=== PATIENT | female | born 1980 | race Caucasian/White ===

== ENCOUNTER 2025-05-18 16:15 | Emergency (ER) | payer SELFPAY ==
[2025-05-18 16:30] VITALS: BP 160/100; PULSE 77; RESP 16; TEMP 37.1; O2SAT 99
--- OUTSIDE RECORDS SUMMARY | 2025-05-18 17:05 | XMS_ITS | Clinical Summary ---
Author Organization [facility] Address [address] [place] [address] Care Team Providers Care Pension Manager Name Role Phone Kevan Don MD Primary Care Provider [phone] Allergies No known active allergies Medications phenazopyridine (PYRIDIUM) 200 mg tablet Take 1 tablet (200 mg total) by mouth 3 (three) times a day 6 tablet 3 Active Additional Information Patient not taking.Reported on 01/22/2024 fluconazole (DIFLUCAN) 150 mg tablet Take one tablet and repeat in 3 days. 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 BX at 3 oclock. ECC rto 2 weeks 10/21/21- bx and ecc negative Assessment & Plan (10/21/2021 2:24 PM CDT): Results reviewed repeat pap in 12m Assessment & Plan (10/07/2021 10:41 AM BEAM SAW OPERATOR): colpo done rto 2 weeks Nasal deformity 09/21/2021 Assessment & Plan (09/21/2021 5:18 PM BEAM SAW OPERATOR): Closed Nasal bone fracture reduction versus more extensive surgical options for nasal dorsal hump reduction as well for referral to Plastics Dr. Vincent She wishes to pursue Plastic surgery referral at this time Vaginal discharge 08/03/2021 Overview (08/03/2021): D/c after sex None currently as she was just treated with flagyl and diflucan Will treat him with flagyl and start her on metrogel weekly. Assessment & Plan (11/25/2024 3:48 PM CDT): Plan to treat clinically while we await pap results. Assessment & Plan (10/07/2021 10:39 AM BEAM SAW OPERATOR): She didn't tell me about this until after the colpo was done There was some granular appearing d/c Will empirically treat with diflucan, if no better will need to come for GC/cT/MICROBIOLOGY ANALYST. Assessment & Plan (08/03/2021 3:32 PM BEAM SAW OPERATOR): metrogel weekly. She will f/u when she comes for her next gardasil Well woman exam with routine gynecological exam 08/03/2021 Overview (08/03/2021): Lab: Pap:many any abnormals. Recommed repeating q year Due for routine labs. Niall:remote- due Colonoscopy: BMD: Gardasil: discussed up to 45- she would like to do today. Assessment & Plan (10/07/2021 10:44 AM BEAM SAW OPERATOR): gardasil #2 today rto 4 months for repeat Assessment & Plan (08/03/2021 3:32 PM BEAM SAW OPERATOR): Pap done. RTO 12m. I will send the results to the portal. If she has not heard in a week, to call the office. Wants gardasil today. 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 on 08/07/18; negative type 2 Acne rosacea 01/17/2017 Anxiety 09/04/2014 Overview (11/04/2016): Anxiety Resolved Problems Problem Noted Date Diagnosed Date Resolved Date Acute cholecystitis 10/25/2019 08/03/19 22 Encounters Date Type Department Care Team Description 04/09/2025 Telephone [facility] [address] [place] [address] Lilian Mendes RN BV from Last 3 Months Immunizations Immunization Administration Dates Next Due HPV, Quadrivalent 08/03/2022 HPV9 10/07/2021,08/03/2021 PPD TEST 01/24/2024 Surgical History Surgery Date Site/Laterality Comments OTHER SURGICAL HISTORY 07/31/1996 - 07/30/1997 : 6 hr labor OTHER SURGICAL HISTORY 07/31/1999 - 07/30/2000 : OTHER SURGICAL HISTORY : 6 hr labor OTHER SURGICAL HISTORY : 3 hr labor TUBAL LIGATION 07/31/2012 - 07/30/2013 Bilateral tubal ligation OTHER SURGICAL HISTORY 07/31/2004 - 07/30/2005 Abnormal pap smear x several years: Cryo OTHER SURGICAL HISTORY Menorrhagia: Novasure endom. ablation CHOLECYSTECTOMY Medical History Medical History Date Comments Hx Other Medical 1996 ; Outc ome: 40 week 7 lb(s) 15 oz Male Hx Other Medical 1999 ; Outc ome: 39 week 7 lb(s) Male Hx Other Medical ; Outc ome: 38 week 7 lb(s) Male Hx Other Medical ; Outc ome: 38 week 7 lb(s) 15 oz Male Hx Other Medical Abnormal pap sm ear x several years Hx Other Medical Menorrhagia Abnormal Pap smear of cervix Acute cholecystitis 10/25/2019 Family History Medical History Relation Name Comments Hypertension Father Hypertension; Brain cancer Father's Sister 1 Cancer, br ain; Breast cancer Father's Sister 2 Cancer, b reast; Lung cancer Father's Sister 3 Cancer, shamar ng; Breast cancer Paternal Grandmother Cancer Neg Hx no colon or dental resident cancer 08/03/21 cmt- doesnt think there was any genetic testing. None of the cousins have any cancer. Relation Name Status Comments Father Father's Sister 1 Father's Sister 2 Father's Sister 3 Paternal Grandmother Social History Tobacco Use Types Packs/Day Years Used Date Smoking Tobacco: Never Smokeless Tobacco: Never Alcohol Use Standard Drinks/Week Comments Not Currently 0 (1 standard drink = 0.6 oz pur e alcohol) rarely Humiliation, Afraid, Rape, and Kick questionnair e Answer Date Recorded Within the last year, have y ou been afraid of your partner or ex-partner? No 08/03/2021 Within the last year, have y ou been humiliated or emotionally abused in other ways by your partner or ex-partner? No Within the last year, have y ou been kicked, hit, slapped, or otherwise physically hurt by your partner or ex-partner? No 08/03/2021 Within the last year, have y ou been raped or forced to have any kind of sexual activity by your partner or ex-partner? No 08/03/2021 PHQ-2 Answer Date Recorded PHQ-2 Total Score (If total score is 3 or more points, staff should administer the PHQ-9) 0 11/25/2024 Personal Safety Answer Date Recorded Have you ever been in or are you currently in a harmful physical or emotional relationship or is someone making you feel afraid or unsafe? Denies 2023 Comments No Sex and Gender Information Value Date Recorded Sex Assigned at Not on file Legal Sex Female 2:57 PM BEAM SAW OPERATOR Gender Identity Not on file Sexual Orientation Not on file Obstetrics History Para Term AB IAB SAB Ectopic Multiple Livin g Live Births 6 4 4 1 5 4 Date Outcome GA Total Labor Labor//3rd Weight Sex Type Anes PTL Leora A1 A5 Name Clin AB 7 Term 40w 0d 3.6 kg (7 lb 15 oz) M Vag-S pont Living 0 Term 39w 0d 3.175 kg (7 lb) M Vag-S pont Living 2 Term 38w 0d 3.175 kg (7 lb) M Vag-S pont Living 6 Term 38w 0d 3.6 kg (7 lb 15 oz) M Vag-S pont Living Last Filed Vital Signs Vital Sign Reading Time Taken Comments Blood Pressure 150/100 11/25/2024 3:00 PM CDT 130 /84 Pulse 88 01/24/2024 11:32 AM CDT Temperature 36.6 C (97.9 F) 01/24/2024 11:32 AM CDT Respiratory Rate 16 01/24/2024 11:32 AM CDT Oxygen Saturation 99% 01/24/2024 11:32 AM CDT Inhaled Oxygen Concentration - - Weight 72.7 kg (160 lb 3.2 oz) 11/25/2024 3:00 P M CDT Height 165.1 cm (5' 5) 01/24/2024 11:32 AM CDT Body Mass Index 26.66 01/24/2024 11:32 AM CDT Plan of Treatment Health Maintenance Due Date Last Done Comments Breast Cancer Screening-Mammogram 1979 Colon Cancer Screening-Colonoscopy 1979 Hepatitis C Screening 1979 DTaP/Tdap/Td Vaccine (1 - Tdap) 1990 Hepatitis B Screening 1997 Covid-19 Vaccine (3 - season) 2025 08/06/2020, 07/18/2020 Influenza Vaccine (#1) 2025 , 05/11/2021, 05/21/2019, Additional history exists Cervical Cancer Screening 11/25/20252024, 11/25/2024, 08/10/2022, Additional history exists Depression Screening 11/25/2025 11/25/2024, 08/10/2022, 08/03/2021, Additional history exists Regular Well Visit/Exam 18-64 11/25/2025 11/25/2024, 08/10/2022, 08/03/2021, Additional history exists HPV Vaccines Completed 08/03/2022, 09/28, 08/03/2021 Pneumococcal vaccine <65 Aged Out No longer eligible based on patient's age to complete this topic Procedures Procedure Name Priority Date/Time Associated Diagnosis Comments HIGH RISK HPV DNA DETECTION WITH GENOTYPING Routine 11/25/2024 3:32 PM CDT Well woman exam from Last 3 Months or Most Recently Relevant to Health Maintenance Results * High Risk HPV DNA Detection with Genotyping (Molecular component) (11/25/2024 3:32 PM CDT) HPV HR 16 Not Detected Not Detected [facility] Comment:Testing performed by : [facility], [address] [place]., [address] HPV HR 18 Not Detected Not Detected [facility] Comment:Testing performed by : [facility], [address] [place]., [address] HPV HR Non 16/18 Not Detected Not Detected [facility] Comment: Interpretive Data Nucleic acid amplification for detection of high-risk Human Papilloma virus (HPV) is performed by the Adrien Silvino 6800 HPV test. This assay specifically detects HPV-16 and HPV-18 genotypes. The following HPV genotypes are detected as high-risk HPV: HPV-31, 33, 35, ,39, 45, 51, 52, 56, 58, 59, 66, and 68. This assay has been approved by the [place] Food and Drug Administration for detection of HPV in cervical specimens collected by a physician using an endocervical brush/spatula or cervical broom and placed in the ThinPrep Pap Test PreservCyt collection containers. The performance characteristics of this test have been verified by the [facility] Molecular Infectious Disease laboratory. Correlate with separately reported cytology results, as applicable. Interpretive data last revised 23 Testing performed by: [facility], [address] [place]., [address] Endocervical 11/25/2024 3:32 PM CDT 11/26/2024 2:13 PM CDT Narrative [facility] - 11/26/2024 8:23 PM CDT Clinical history and diagnosis->a Number of vials->1 Testing type->Screening Last menstrual period (date if known)->a us Patrizia Veras NP LAB BODY FLUIDS AND STOOLS ORDERABLES Final Result [facility] [id number] Department [place] [address] [facility] from Last 3 Months or Most Recently Relevant to Health Maintenance Insurance [facility] Advance Directives For more information, please contact: [phone] * Full Code (Latest Code Status on File) Date Activated Date Inactivated Comments 10/24/2019 12:26 PM 10/25/2019 8:21 PM Care Teams Pension Manager Relationship Specialty Start Date End Date Kevan Don MD PCP - General 10/24/19
--- NOTE | 2025-05-18 18:01 | ED_ITS ---
HPI - General Adult General Chief complaint: Urogenital-Female Stated complaint: yeast infection Time Seen by Provider: 05/18/25 16:47 History of Present Illness HPI narrative: 44-year-old female presented to the emergency department for evaluation for vaginal discharge and vaginal irritation consistent with a yeast infection. Patient has been tempting [id number] treatments with no improvement. Related Data Allergies Allergy/AdvReac Type Severity Reaction Status Date / Time No Known Allergies Allergy Verified 05/18/25 16:37 Review of Systems Review of Systems: All systems reviewed & are unremarkable except as noted in HPI and below Exam Narrative: APPEARANCE: Well appearing, no pain, no distress, well-nourished. HEAD: normocephalic, atraumatic. EYES: PERRLA/EOMI, conjunctivae clear. NOSE: Normal no drainage EARS:TMS clear with good light reflex. THROAT: Pharynx clear, no exudate. NECK: Supple. No adenopathy, no masses. RESPIRATORY: Airway patent, respirations nonlabored. Clear to auscultation bilaterally, no rales, rhonchi, wheezing. CARDIOVASCULAR: Regular rate and rhythm without murmurs rubs or gallops. ABDOMINAL: Soft, nontender, nondistended, normal bowel sounds MUSCULOSKELETAL: Moves all extremities. Strength/ROM intact, No edema, No calf tenderness. NEURO: Alert. Cranial nerves II through XII intact. Good gait. Good coordination SKIN: Warm, dry. Normal Color Genital exam: Thick vaginal discharge consistent with candidiasis Course Vital Signs Vital signs: Vital Signs Temperature 98.7 F 05/18/25 16:30 Pulse Rate 77 05/18/25 16:30 Respiratory Rate 16 05/18/25 16:30 Blood Pressure 160/100 H 05/18/25 16:30 Pulse Oximetry 99 05/18/25 16:30 Temperature 98.7 F 05/18/25 16:30 Pulse Rate 73 05/18/25 18:24 Respiratory Rate 20 05/18/25 18:24 Blood Pressure 158/100 H 05/18/25 18:24 Pulse Oximetry 100 05/18/25 18:24 Medical Decision Making [facility] Narrative Medical decision making narrative: 44-year-old female presents emergency department for evaluation for vaginal irritation vaginal discharge. Exam was consistent with vaginal candidiasis. Patient was negative for gonorrhea and chlamydia. Patient was treated with consult emergency department provided prescription for fluconazole for 1 additional pills and 2 hours after her initial dose. Patient was encouraged of close follow-up with her OB Gyne. All questions were addressed. Differential Diagnosis Differential Diagnosis: Vaginal candidiasis, gonorrhea, chlamydia Vital Signs Vital Signs: Vital Signs Temperature 98.7 F 05/18/25 16:30 Pulse Rate 77 05/18/25 16:30 Respiratory Rate 16 05/18/25 16:30 Blood Pressure 160/100 H 05/18/25 16:30 Pulse Oximetry 99 05/18/25 16:30 Temperature 98.7 F 05/18/25 16:30 Pulse Rate 73 05/18/25 18:24 Respiratory Rate 20 05/18/25 18:24 Blood Pressure 158/100 H 05/18/25 18:24 Pulse Oximetry 100 05/18/25 18:24 Lab Data Lab results reviewed: Yes I reviewed the patient's lab results. Labs: Lab Results 05/18/25 Range/Units 17:48 C. trachomatis (PCR) Not detected (NOT DETECTE) N. gonorrhoeae (PCR) Not detected (NOT DETECTE) Discharge Plan Discharge Clinical Impression: Candidiasis of vagina Patient Disposition: Home Condition: Stable Instructions: Antibiotic Form Additional Instructions: You were negative for gonorrhea and chlamydia. You are being treated for a yeast infection. Oral fluconazole 72 hours after your dose that you were given in the emergency department. Patient Language: Danish Prescriptions: New fluconazole 150 mg tablet 150 mg PO ONCE Qty: 1 0RF Rx Instructions: as a single dose on 05/21/25 Follow-up/Referrals: Arian,Kevan Osorio MD [Primary Care Provider]
[2025-05-18] MEDS: FLUCONAZOLE 150 MG TABLET PO (18:23)
[2025-05-18 18:24] VITALS: BP 158/100; PULSE 73; RESP 20; O2SAT 100
[2025-05-18 19:39] VITALS: BP 160/101; PULSE 88; RESP 20; TEMP 37.1; O2SAT 100
== END 2025-05-18 19:48 | disposition home or self-care (01) ==
PROVIDERS: Emergency Provider Emergency Medicine; PCP Family Medicine
DX: B37.31 Acute candidiasis of vulva and vagina (principal)
CPT/HCPCS: 87491; 87591; 99283; 99284; A9270